=== PATIENT | female | born 1995 | race Caucasian/White ===

== ENCOUNTER 2020-12-03 17:51 | Emergency (ER) | payer MEDICAID, SELFPAY ==
[2020-12-03 18:04] VITALS: BP 140/73; PULSE 75; RESP 16; TEMP 37.2; O2SAT 100
--- NOTE | 2020-12-03 18:46 | ED.BACK ---
HPI - Back Pain/Injury General Chief Complaint: Back Pain/Injury Stated Complaint: Pain in back Time Seen by Provider: 12/03/20 18:46 Source: patient Mode of arrival: ambulatory Limitations: no limitations History of Present Illness HPI Narrative: Melissa Gamboa is a 25 yo female with diet controlled diabetes, asthma, who comes with chronic sciatica to the right lower back that radiates down the posterior leg. Has a history of sciatica and usually is responsive to ibuprofen and rest, but at this time is not improving Has not had Covid vaccine Related Data Allergies Allergy/AdvReac Type Severity Reaction Status Date / Time latex Allergy Rash Verified 12/03/20 18:17 Review of Systems Review of Systems: CONSTITUTIONAL: Denies fever, chills, sweats. EYES: Denies visual changes, redness, discharge. ENT: Denies rhinorrhea, congestion, sore throat, otalgia. CARDIOVASCULAR: Denies chest pain, palpitations, edema. RESPIRATORY: Denies dyspnea, wheezing, cough GASTROINTESTINAL: Denies abdominal pain, nausea, vomiting, diarrhea. GENITOURINARY: Denies dysuria, hematuria, abnormal discharge SKIN: Denies rash or itching. NEUROLOGIC: Denies numbness, or focal weakness. PSYCHIATRIC: Denies anxiety or depression. Right side sciatica PMFSH Past Medical History Medical History (Updated 12/03/20 @ 18:54 by Caroline Conde CNP) Asthma Depression Diet-controlled diabetes mellitus Social History Social History (Updated 12/03/20 @ 18:49 by Caroline Conde CNP) Smoking packs per day: 0.5 Smoking cigarettes per day: 10.0 Smoking status: Current every day smoker Tobacco type: cigarettes Alcohol intake: current Comments At time of signature, I agree with nursing past medical, surgical, social and family history. There is no relevant family history pertinent to the presenting complaint. Exam Narrative: GENERAL: This is a well-nourished, well-developed patient, in mild distress. HEAD: normocephalic, atraumatic. EYES: Sclera clear/white. Vision is grossly intact. EARS: External ears normal. Hearing grossly intact. NOSE: External nose normal without nasal discharge, nares without redness, no rhinorrhea. THROAT: Mucous membranes moist, NECK: Neck supple, CARDIOVASCULAR: Regular rate and rhythm without murmurs, gallops, or rubs. RESPIRATORY: Clear to auscultation. Breath sounds equal bilaterally. No wheezes, rales, or rhonchi. GASTROINTESTINAL: Abdomen soft, SKIN: warm, intact with no suspicious lesions or rash, good texture and turgor. NEURO: awake, alert, and oriented to person, place and time. There were no obvious focal neurologic abnormalities. Steady gait; no loss of bladder or bowel function EXTREMITIES: Normal range of motion. Lower right back pain with pain that goes down the posterior right thigh and down to the back of the calf BACK: Nontender without deformity Course Course Emergency Course: Patient comes with right-sided sciatica that is recurrent Patient started on prednisone, muscle relaxant, high-dose ibuprofen has not been particularly effective Given stretching exercises If continues should see PCP Vital Signs Vital signs: Vital Signs Temperature 98.9 F 12/03/20 18:04 Pulse Rate 75 12/03/20 18:04 Respiratory Rate 16 12/03/20 18:04 Blood Pressure 140/73 12/03/20 18:04 Pulse Oximetry 100 12/03/20 18:04 Temperature 98.9 F 12/03/20 18:04 Pulse Rate 75 12/03/20 18:04 Respiratory Rate 16 12/03/20 18:04 Blood Pressure 140/73 12/03/20 18:04 Pulse Oximetry 100 12/03/20 18:04 MDM - Back Pain/Injury Differential Diagnosis Differential diagnosis: Likely lumbar radiculopathy, sciatica, strain of lumbar region, thoracic back pain and other Critical Care Time Critical Care Time Critical Care Time: No Discharge Plan Discharge Clinical Impression: Lumbar radiculopathy Patient Disposition: Home, Self-Care Condition: Stable Instructions: Lumbar Radicul
[2020-12-03] MEDS: predniSONE 20 MG TABLET 60 MG PO (18:57)
== END 2020-12-03 19:02 | disposition home or self-care (01) ==
PROVIDERS: Emergency Provider Nurse Practitioner
DX: M54.16 Radiculopathy, lumbar region (principal); F17.210 Nicotine dependence, cigarettes, uncomplicated; J45.909 Unspecified asthma, uncomplicated; E11.9 Type 2 diabetes mellitus without complications
CPT/HCPCS: 99213; G0463; J7512